=== PATIENT | female | born 1985 | race Two or more races ===

== ENCOUNTER 2024-07-07 15:19 | Emergency (ER) | payer OTHER ==
[~2024-07-07] VITALS: Ht 162.6 cm; Wt 104.3 kg
[2024-07-07] MEDS ORDERED: ELIQUIS2.5 MG (15:27)
[2024-07-07] MEDS ORDERED: PROMETHAZINE HCL 25 MG/ML AMPUL IM ONE (16:45)
[2024-07-07] MEDS ORDERED: MEPERIDINE HCL/PF 50 MG/ML VIAL IM ONE (16:45)
[2024-07-07] MEDS ORDERED: PROMETHAZINE HCL 25 MG/ML AMPUL ONE (17:05)
[2024-07-07 17:06] LABS: HEMATOCRIT 40.3 % (36.0-45.00); HEMOGLOBIN 13.6 g/dL (12.0-15.00); MEAN CELL VOLUME 89.6 fL (80.00-100.00); MEAN CORPUSCULAR HEMOGLOBIN 30.2 pg (27.00-32.0); MEAN CORPUSCULAR HGB CONC 33.8 g/dl (32.0-36.0); PLATELET COUNT 219 K/uL (150-450)
[2024-07-07 17:34] LABS: CALCIUM 9.7 mg/dL (8.5-10.1); CREATININE SERUM 0.84 mg/dL (0.55-1.02); GFR 75.09; POTASSIUM 3.82 mEq/L (3.5-5.1)
[2024-07-07 17:35] LABS: D DIMER 0.26 MG/L; PARTIAL THROMBOPLASTIN TIME 35.4 SECONDS (22.0-34.0)
[2024-07-07 17:37] LABS: INR 1.01
== END 2024-07-07 21:48 | disposition home or self-care (01) ==
LOC: ER 15:21
PROVIDERS: General Practice
DX: I82.622 Acute embolism and thrombosis of deep veins of left upper extremity (principal); Z86.718 Personal history of other venous thrombosis and embolism; D68.51 Activated protein C resistance; K80.20 Calculus of gallbladder without cholecystitis without obstruction